=== PATIENT | female | born 1945 | race Caucasian/White ===

== ENCOUNTER 2017-04-12 09:36 | Emergency (ER) | payer MEDICARE, MEDICAID ==
[~2017-04-12] VITALS: Ht 160 cm; Wt 106.0 kg
[2017-04-12 09:39] VITALS: Ht 160 cm; Wt 106.0 kg
[2017-04-12] MEDS ORDERED: SOD CHLORIDE 0.9% 500 ML IV STA (10:46)
[2017-04-12] MEDS ORDERED: ONDANSETRON 4 MG INJ IV STA (10:46)
[2017-04-12] MEDS ORDERED: morphine 4 MG/ML VIAL IV STA (10:46)
[2017-04-12] MEDS ORDERED: VALS320T11 PO (10:58)
[2017-04-12] MEDS ORDERED: CLON-379 PO (10:58)
[2017-04-12] MEDS ORDERED: ALBU2.5V3 NEB (10:58)
[2017-04-12] MEDS ORDERED: ASPI81TA3 PO (10:58)
[2017-04-12 11:05] LABS: BASOPHILS % 0.4 % (0.0-2.0); EOSINOPHILS # 0.3 10^3/ul (0.0-0.5); EOSINOPHILS % 3.8 % (0.0-7.0); HEMATOCRIT 31.4 % (37.0-47.0); HEMOGLOBIN 10.1 g/dl (12.0-16.0); LYMPHOCYTES # 1.1 10^3/ul (0.8-2.9); LYMPHOCYTES % 15.9 % (15.0-51.0); MEAN CORPUSCULAR HEMOGLOBIN 25.4 pg (29.0-33.0); MEAN CORPUSCULAR HGB CONC 32.2 g/dl (32.0-37.0); MEAN CORPUSCULAR VOLUME 79.1 fl (82.0-101.0); MEAN PLATELET VOLUME 9.9 fl (7.4-10.4); MONOCYTE # 0.6 10^3/ul (0.3-0.9); MONOCYTES % 8.6 % (0.0-11.0); NEUTROPHIL # 4.8 10^3/ul (1.6-7.5); NEUTROPHILS % 70.3 % (39.0-77.0); PLATELET COUNT 250 10^3/UL (140-415); RED BLOOD COUNT 3.97 10^6/ul (4.20-5.40); RED CELL DISTRIBUTION WIDTH 15.1 % (11.5-14.5); WHITE BLOOD COUNT 6.8 10^3/ul (4.8-10.8)
--- NOTE | 2017-04-12 11:29 | RADRPT ---
PROCEDURE: CT Brain without contrast. CLINICAL INDICATION: Headache. TECHNIQUE: A CT of the brain was performed on multidetector high-resolution CT scanner utilizing a xial sections from the skull base through the vertex without contrast. The scan was reviewed in sof t tissue brain and high frequency resolution bone algorithm windows. Images were reviewed on a high -resolution PACS workstation. One or more the following does reduction techniques were utilized: Aut omated exposure control, adjustment of the mA/ or kV according to patient's size, or use of iterativ e reconstruction technique. The exam CTDI = 42.02 mGy and the DLP = 720.23 mGy-cm. COMPARISON: None available. FINDINGS: The ventricles and sulci are mildly prominent indicative of volume loss. There is 5 mm calcification /ossification along the anterior falx. There is no intracranial hemorrhage, mass effect or midline s hift. No abnormal intra-axial or extra-axial fluid collections are seen. The mcconnell/white matter diff erentiation is preserved. There are mild scattered foci of hypoattenuation in the white matter, which are nonspecific in etiol ogy but likely reflect chronic small vessel ischemic changes. There is prominent left parasagittal r etrocerebellar CSF space measuring up to 1 cm in AP diameter which may represent alonso cisterna magna versus arachnoid cyst. There are mild intracranial vascular calcifications consistent with atherosc lerosis. The visualized paranasal sinuses demonstrate focal opacification of anterior right ethmoid air cells. 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 The mastoid air cells are essentially clear. IMPRESSION: 1. No acute intracranial hemorrhage, transcortical infarction or mass effect. 2. Mild intracranial atherosclerosis and chronic small vessel ischemic changes. 3. Prominent left parasagittal retrocerebellar CSF space which may represent alonso cisterna magna ve rsus arachnoid cyst. 4. Mild generalized cerebral volume loss. RPTAT: JJ .Gayle Caban MD, MD Date Time Electronically viewed and signed by .Gayle Caban MD, MD on 04/12/2017 11:29 .N/
--- NOTE | 2017-04-12 11:38 | RADRPT ---
PROCEDURE: XR Chest. CLINICAL INDICATION: Shortness of breath. TECHNIQUE: Single frontal view. COMPARISON: None. FINDINGS: The lungs are clear. The heart is enlarged. There is calcification in the aorta consistent with atherosclerosis. Surgical clips are present in the neck. There is no pleural effusion. There is no pneumothorax. IMPRESSION: 1. Cardiomegaly and atherosclerosis. 2. Prior neck surgery. 3. Otherwise normal chest x-ray. RPTAT: QQ .Manjit Carlisle MD, MD Date Time Electronically viewed and signed by .Manjit Carlisle MD, MD on 04/12/2017 11:37 .R/
[2017-04-12 11:51] LABS: ADD UMIC YES; UR ASCORBIC ACID NEGATIVE (NEGATIVE); UR BILIRUBIN (Dip) NEGATIVE (NEGATIVE); UR BLOOD (Dip) NEGATIVE (NEGATIVE); UR CLARITY CLEAR (CLEAR); UR COLOR YELLOW (YELLOW); UR GLUCOSE (Dip) NEGATIVE (NEGATIVE); UR KETONES (Dip) NEGATIVE (NEGATIVE); UR LEUKOCYTE ESTERASE (Dip) NEGATIVE Leu/ul (NEGATIVE); UR NITRITE (Dip) NEGATIVE (NEGATIVE); UR RBC 2 /HPF (0-5); UR SPECIFIC GRAVITY (Dip) 1.013 (1.003-1.030); UR SQUAMOUS EPITHELIAL CELL FEW /HPF (FEW); UR TOTAL PROTEIN (Dip) 1+ mg/dl (NEGATIVE); UR UROBILINOGEN (Dip) NEGATIVE (NEGATIVE)
[2017-04-12 12:03] LABS: ALANINE AMINOTRANSFERASE 36 IU/L (13-69); ALBUMIN 4.3 g/dl (3.3-4.9); ALBUMIN/GLOBULIN RATIO 0.89; ALKALINE PHOSPHATASE 64 IU/L (42-121); ASPARTATE AMINO TRANSFERASE 23 IU/L (15-46); BILIRUBIN,INDIRECT 0.3 mg/dl (0-1.1); BILIRUBIN,TOTAL 0.3 mg/dl (0.2-1.3); BLOOD UREA NITROGEN 19 mg/dl (7-20); CALCIUM 9.1 mg/dl (8.4-10.2); CARBON DIOXIDE 31 mmol/L (21-31); CHLORIDE 97 mmol/L (97-110); CREATININE 0.78 mg/dl (0.44-1.00); GLUCOSE 121 mg/dl (70-220); POTASSIUM 4.4 mmol/L (3.5-5.1); TOTAL PROTEIN 9.1 g/dl (6.1-8.1)
[2017-04-12 12:14] LABS: ANION GAP 14 (8-16)
[2017-04-12 12:23] LABS: SODIUM 138 mmol/L (135-144); TROPONIN-I < 0.012 ng/ml (0.00-0.12)
[2017-04-12 13:21] VITALS: BP 155/72; PULSE 66; RESP 18
[2017-04-12] MEDS ORDERED: HYDR-906 PO (13:48)
[2017-04-12] MEDS ORDERED: METH750T93 PO (13:49)
--- NOTE | 2017-04-12 13:55 | ERD ---
ER Documentation Chief Complaint Chief Complaint headache, back pain HPI This is a 71-year-old female complains of low back pain for the past month. Pain is located in bilateral lower lumbar region. She is afraid she has a kidney infection. She is a pain is worsened when she moves and is described as dull and sharp. She also complains of a diffuse headache off and on for the past week. No focal neurological complaints such as numbness or weakness no shortness of breath although she has asthma she says she takes her breathing treatments and this resolves any type of wheezing she might have. No chest pain. No fever no dysuria or hematuria ROS All systems reviewed and are negative except as per history of present illness. Medications Home Meds Active Scripts Methocarbamol* (Robaxin*) 750 Mg Tablet, 750 MG PO TID, #14 TAB Prov:SERGEI VELAZCO DO 04/12/17 Hydrocodone/Acetaminophen (Reserve 5-325 Tablet) 1 Each Tablet, 1 TAB PO Q6H Y for PAIN, #20 TAB Prov:SERGEI VELAZCO DO 04/12/17 Reported Medications Aspirin* (Aspirin* Chew) 81 Mg Tab.chew, 81 MG PO DAILY, TAB.CHEW 04/12/17 Albuterol Sulfate* (Albuterol Sulfate* Neb) 0.083%-3 Ml Neb, 1.25 MG NEB Q3H Y for WHEEZING AND SOB, #30 VIAL 04/12/17 Valsartan* (Diovan*) 320 Mg Tablet, 320 MG PO DAILY, TAB 04/12/17 Clonidine Hcl* (Clonidine Hcl*) 0.1 Mg Tab, 0.1 MG PO Q8, TAB 04/12/17 Allergies Allergies: Coded Allergies: No Known Allergy (Verified , 08/19/09) PMhx/Soc Hx Alcohol Use: No Hx Substance Use: No Hx Tobacco Use: No Smoking Status: Never smoker FmHx Family History: No coronary disease Physical Exam Vitals Vital Signs Date Time Temp Pulse Resp B/P Pulse Ox O2 Delivery O2 Flow Rate FiO2 04/12/17 13:21 66 18 155/72 95 Room Air 04/12/17 10:32 70 18 170/88 100 Room Air 04/12/17 09:39 97.2 80 20 222/99 98 Physical Exam Const: Well-developed, well-nourished Head: Atraumatic, normocephalic Eyes: Normal Conjunctiva, PERRLA, EOMI, normal sclera, no nystagmus ENT: Normal External Ears, Nose and Mouth, moist mucus membranes. Neck: Full range of motion. No meningismus, no lymphadenopathy. Resp: Clear to auscultation bilaterally, no wheezing, rhonchi, rales Cardio: Regular rate and rhythm, no murmurs, S1 S2 present Abd: Soft, non tender x 4, non distended. Normal bowel sounds, no guarding or rebound, no pulsitile abdominal masses or bruits Skin: No petechiae or rashes, no ecchymosis , no maculopapular rash Back: Bilateral lumbar tenderness lower Ext: No cyanosis, or edema, FROM x 4, normal inspection, neurovascularly intact x 4 Neur: Awake and alert, STR 5/5 x 4, sensation intact x 4, no focal findings, cerebellum intact Psych: Normal Mood and Affect Result Diagram: 04/12/17 1025 04/12/17 1025 Results 24 hrs Laboratory Tests Test 04/12/17 10:25 04/12/17 11:00 White Blood Count 6.810^3/ul Red Blood Count 3.9710^6/ul Hemoglobin 10.1g/dl Hematocrit 31.4% Mean Corpuscular Volume 79.1fl Mean Corpuscular Hemoglobin 25.4pg Mean Corpuscular Hemoglobin Concent 32.2g/dl Red Cell Distribution Width 15.1% Platelet Count 10126^3/UL Mean Platelet Volume 9.9fl Neutrophils % 70.3% Lymphocytes % 15.9% Monocytes % 8.6% Eosinophils % 3.8% Basophils % 0.4% Nucleated Red Blood Cells % 0.0/100WBC Neutrophils # 4.810^3/ul Lymphocytes # 1.110^3/ul Monocytes # 0.610^3/ul Eosinophils # 0.310^3/ul Basophils # 0.010^3/ul Nucleated Red Blood Cells # 0.010^3/ul Sodium Level 138mmol/L Potassium Level 4.4mmol/L Chloride Level 97mmol/L Carbon Dioxide Level 31mmol/L Anion Gap 14 Blood Urea Nitrogen 19mg/dl Creatinine 0.78mg/dl Glucose Level 121mg/dl Calcium Level 9.1mg/dl Total Bilirubin 0.3mg/dl Direct Bilirubin 0.00mg/dl Indirect Bilirubin 0.3mg/dl Aspartate Amino Transf (AST/SGOT) 23IU/L Alanine Aminotransferase (ALT/SGPT) 36IU/L Alkaline Phosphatase 64IU/L Troponin I < 0.012ng/ml Total Protein 9.1g/dl Albumin 4.3g/dl Globulin 4.80g/dl Albumin/Globulin Ratio 0.89 Urine Color YELLOW Urine Clarity CLEAR Urine pH 6.0 Urine Specific [place] 1.013 Urine Ketones NEGATIVEmg/dL Urine Nitrite NEGATIVEmg/dL Urine Bilirubin NEGATIVEmg/dL Urine Urobilinogen NEGATIVEmg/dL Urine Leukocyte Esterase NEGATIVELeu/ul Urine Microscopic RBC 2/HPF Urine Microscopic WBC 0/HPF Urine Squamous Epithelial Cells FEW/HPF Urine Hemoglobin NEGATIVEmg/dL Urine Glucose NEGATIVEmg/dL Urine Total Protein 1+mg/dl Current Medications Medications (Trade) Dose Ordered Sig/Rody Route PRN Reason Start Time Stop Time Status Last Admin Dose Admin Sodium Chloride (NS) 500 ml @ 500 mls/hr Q1H STAT IV 04/12/17 10:46 04/12/17 11:45 DC 04/12/17 11:42 Morphine Sulfate (morphine) 4 mg ONCE STAT IV 04/12/17 10:46 04/12/17 10:50 DC 04/12/17 11:42 Ondansetron HCl (Zofran Inj) 4 mg ONCE STAT IV 04/12/17 10:46 04/12/17 10:50 DC 04/12/17 11:42 Procedures/MDM EKG: Rate/Rhythm: Normal Sinus Rhythm,NL intervals QRS, ST, QT: NORMAL WA, QRS, QT] Impression: NORMAL EKG PROCEDURE: CT Brain without contrast. CLINICAL INDICATION: Headache. TECHNIQUE: A CT of the brain was performed on multidetector high-resolution CT scanner utilizing axial sections from the skull base through the vertex without contrast. The scan was reviewed in soft tissue brain and high frequency resolution bone algorithm windows. Images were reviewed on a high- resolution PACS workstation. One or more the following does reduction techniques were utilized: Automated exposure control, adjustment of the mA/ or kV according to patient's size, or use of iterative reconstruction technique. The exam CTDI = 42.02 mGy and the DLP = 720.23 mGy-cm. COMPARISON: None available. FINDINGS: The ventricles and sulci are mildly prominent indicative of volume loss. There is 5 mm calcification/ossification along the anterior falx. There is no intracranial hemorrhage, mass effect or midline shift. No abnormal intra-axial or extra-axial fluid collections are seen. The mcconnell/white matter differentiation is preserved. There are mild scattered foci of hypoattenuation in the white matter, which are nonspecific in etiology but likely reflect chronic small vessel ischemic changes. There is prominent left parasagittal retrocerebellar CSF space measuring up to 1 cm in AP diameter which may represent alonso cisterna magna versus arachnoid cyst. There are mild intracranial vascular calcifications consistent with atherosclerosis. The visualized paranasal sinuses demonstrate focal opacification of anterior right ethmoid air cells. 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 The mastoid air cells are essentially clear. IMPRESSION: 1. No acute intracranial hemorrhage, transcortical infarction or mass effect. 2. Mild intracranial atherosclerosis and chronic small vessel ischemic changes. 3. Prominent left parasagittal retrocerebellar CSF space which may represent alonso cisterna magna versus arachnoid cyst. 4. Mild generalized cerebral volume loss. RPTAT: JJ .Gayle Caban MD, MD Date Time Electronically viewed and signed by .Gayle Caban MD, MD on 04/12/2017 11: 29 .N/ CC: SERGEI VELAZCO DO PROCEDURE: XR Chest. CLINICAL INDICATION: Shortness of breath. TECHNIQUE: Single frontal view. COMPARISON: None. FINDINGS: The lungs are clear. The heart is enlarged. There is calcification in the aorta consistent with atherosclerosis. Surgical clips are present in the neck. There is no pleural effusion. There is no pneumothorax. IMPRESSION: 1. Cardiomegaly and atherosclerosis. 2. Prior neck surgery. 3. Otherwise normal chest x-ray. RPTAT: QQ .Manjit Carlisle MD, Date Time Electronically viewed and signed by .Manjit Carlisle MD, MD on 04/12/2017 11:37 .R/ CC: SERGEI VELAZCO DO Workup on this patient looks benign. No cerebral hemorrhage or mass, no UTI no pyelonephritis. Patient likely has lumbar back strain. The patient was just concerned she had something wrong so she feels relieved that all her lab work and radiology studies look good. Departure Diagnosis: Primary Impression: Headache Headache type: unspecified Headache chronicity pattern: unspecified pattern Intractability: not intractable Qualified Code: R51 - Nonintractable headache, unspecified chronicity pattern, unspecified headache type Additional Impression: Back pain Back pain location: low back pain Chronicity: acute Back pain laterality: unspecified Sciatica presence: without sciatica Qualified Code: M54.5 - Acute low back pain without sciatica, unspecified back pain laterality Condition: Stable Patient Instructions: Back Pain (Acute Or Chronic), Headache, Unspecified SERGEI VELAZCO DO Apr 12, 2017 13:55
== END 2017-04-12 14:14 | disposition home or self-care (01) ==
LOC: E/R 09:36
DX: R51 Headache (principal); M54.5 Low back pain; R07.9 Chest pain, unspecified; Z79.82 Long term (current) use of aspirin
CPT/HCPCS: 36415; 70450; 71010; 80053; 81001; 84484; 85025; 93005; 96374; 96375; 99285; J2270; J2405; J7040